=== PATIENT | male | born 1980 | race Caucasian/White ===

== ENCOUNTER 2019-12-03 16:03 | Emergency (ER) | payer BC ==
[~2019-12-03] VITALS: Ht 185.4 cm; Wt 105.2 kg
[2019-12-03 17:09] LABS: BASO % 0.4 % (0.0-1.0); EOS # 0.1 10*3/uL (0.0-0.4); EOS % 1.3 % (1.0-4.0); HEMATOCRIT 47.7 % (42.0-52.0); LYMPH # 1.6 10*3/uL (1.3-4.4); LYMPH % 21.7 % (27.0-41.0); MEAN CELL VOLUME 88.8 fl (80.0-94.0); MEAN CORPUSCULAR HGB 29.2 pg (27.0-31.0); MEAN CORPUSCULAR HGB CONC 32.9 g/dl (33.0-37.0); MEAN PLATELET VOLUME 9.8 fl (9.6-12.3); MONO # 0.6 10*3/uL (0.1-1.0); MONO % 8.1 % (3.0-9.0); NEUT # 4.9 10*3/uL (2.3-7.9); NEUT % 68.4 % (47.0-73.0); PLATELET COUNT AUTOMATED 246 10*3/uL (130-400); RED BLOOD COUNT 5.37 10*6/uL (4.50-5.90); RED CELL DISTRI WIDTH 12.3 % (0-14.5); WHITE BLOOD COUNT 7.2 10*3/uL (4.8-10.8)
[2019-12-03 17:25] LABS: ALBUMIN 3.9 gm/dl (3.1-4.5); ALKALINE PHOSPHATASE 36 U/L (45-117); BUN 17 mg/dl (7-24); CHLORIDE 109 mmol/L (98-107); CREATININE 0.99 mg/dL (0.70-1.30); LIPASE 86 U/L (73-393); POTASSIUM 3.7 mmol/L (3.5-5.1); SGOT/AST 18 IU/L (3-35); SGPT/ALT 28 U/L (12-78); SODIUM 139 mmol/L (136-145); TOTAL PROTEIN 7.5 gm/dL (6.4-8.2)
[2019-12-03 17:28] LABS: TROPONIN I < 0.015 ng/ml (<0.045)
[2019-12-03 17:35] LABS: ACT PARTIAL THROMBO TIME 31.3 SECONDS (20.0-32.1)
[2019-12-03 17:43] LABS: ACETAMINOPHEN (TYLENOL) < 5.0 ug/ml (10-30); ETHYL ALCOHOL < 3.0 mg/dl (<3)
== END 2019-12-03 22:00 | disposition home or self-care (01) ==
LOC: ED 16:03
PROVIDERS: Physician Assistant
DX: R07.89 Other chest pain (principal); F41.9 Anxiety disorder, unspecified